=== PATIENT | female | born 1980 | race Hispanic/Latino ===

== ENCOUNTER 2018-04-01 10:57 | Observation (INO) | payer OTHER ==
[2018-03-30 11:39] LABS: Basophils % (Auto) 0.4 % (0.0-1.8); Eosinophils # (Auto) 0.1 K/mm3 (0.0-0.4); Eosinophils % (Auto) 1.5 % (0.0-4.3); Hematocrit 41.4 % (30.3-42.9); Hemoglobin 13.8 gm/dl (10.1-14.3); Lymphocytes # (Auto) 2.6 K/mm3 (1.2-5.4); Mean Corpuscular HGB Conc 33 % (30-34); Mean Corpuscular Hemoglobin 29 pg (28-32); Mean Corpuscular Volume 88 fl (79-97); Monocytes # (Auto) 0.3 K/mm3 (0.0-0.8); Monocytes % (Auto) 4.1 % (0.0-7.3); Platelet Count 279 K/mm3 (140-440)
--- NOTE | 2018-03-30 11:56 | Anesthesia Consultation ---
Anesthesia Consult and Med Hx Date of service: 03/30/18 - Airway ROM Head & Neck: Adequate Mental/Hyoid Distance: Adequate Mallampati Class: Class I Intubation Access Assessment: Good - Pulmonary Exam CTA: Yes - Cardiac Exam Cardiac Exam: RRR - Pre-Operative Health Status ASA Pre-Surgery Classification: ASA2 Proposed Anesthetic Plan: General Nerve Block: TAP BLOCK - Pulmonary Hx Smoking: Yes - Central Nervous System Hx Psychiatric Problems: Yes - Other Systems Hx Alcohol Use: Yes (Several times /week) Hx Cancer: No
--- NOTE | 2018-04-01 08:00 | History and Physical Report ---
History of Present Illness Date of examination: 04/01/18 Chief complaint: chronic pelvic pain History of present illness: 37y/o with a longstanding history of chronic pelvic pain and dyspareunia. She has undergone surgical management in the past with a laparoscopy for ovarian cysts. She reports her pain is now affecting her quality of life. She elects to proceed with surgical management. Pelvic ultrasound was unremarkable Past History Past Medical History: migraines, other (depression; polycystic ovaries) Past Surgical History: section, other (laparoscopy; BTL) Social history: - Obstetrical History : 2 Para: 2 Hx # Term Pregnancies: 2 Number of Pregnancies: 0 Spontaneous Abortions: 0 Induced : 0 Number of Living Children: 2 Medications and Allergies Allergies Allergy/AdvReac Type Severity Reaction Status Date / Time acetaminophen [From Percocet] Allergy Headache Verified 03/30/18 12:37 oxycodone HCl [From Percocet] Allergy Headache Verified 03/30/18 12:37 propoxyphene napsylate Allergy Headache Verified 03/30/18 12:37 [From Darvocet-N 100] Home Medications Medication Instructions Recorded Confirmed Last Taken Type HYDROcodone/ACETAMINOPHEN 1 tab PO Q6H PRN 03/24/18 03/24/18 Unknown History [Hydrocodone-Acetamin 5-325 mg] Ibuprofen [Ibu] 800 mg PO Q8H PRN 03/24/18 03/24/18 Unknown History traMADol [Ultram 50 MG tab] 50 mg PO Q8H PRN 03/24/18 03/24/18 Unknown History Active Meds: Active Medications Celecoxib (Celebrex) 200 mg PO PREOP NR Stop: 04/01/18 23:59 Gabapentin (Neurontin) 300 mg PO PREOP NR Stop: 04/01/18 23:59 Lactated Ringer's (Lactated Ringers) 1,000 mls @ 100 mls/hr IV DIRECT FILIBERTO Review of Systems All systems: negative Genitourinary: pelvic pain - Vital Signs Vital signs: Vital Signs Temp Pulse Resp BP 97.7 F 60 16 124/74 03/30/18 11:05 03/30/18 11:05 03/30/18 11:05 03/30/18 11:05 Temp Pulse Resp BP Pulse Ox 97.7 F 60 16 124/74 03/30/18 11:05 03/30/18 11:05 03/30/18 11:05 03/30/18 11:05 - Physical Exam Breasts: Positive: deferred Cardiovascular: Regular rate Lungs: Positive: Clear to auscultation Abdomen: Positive: normal appearance Results Result Diagrams: 03/30/18 11:15 All other labs normal. Assessment and Plan - Patient Problems (1) Chronic pelvic pain in female Status: Acute Plan to address problem: scheduled for a robotic hysterectomy and BSO (2) Dyspareunia in female Status: Acute
[~2018-04-01 10:57] MED LIST: ANCEF/STERILE WATER 2 GM/20 ML 2 GM/20 ML SYRINGE IV SCH; MARCAINE 0.5% INFILTRATI ONE; NEURONTIN PO NR; SUBLIMAZE IV ONE; VERSED IV NR
[2018-04-01] MEDS: LACTATED RINGERS 1,000 ML IV SCH ×2 (11:36→23:59)
[2018-04-01] MEDS ORDERED: VERSED ONE (12:52)
[2018-04-01] MEDS ORDERED: NAROPIN O.5% ONE (12:52)
[2018-04-01] MEDS ORDERED: SUBLIMAZE ONE ×2 (12:53→13:13)
[2018-04-01] MEDS ORDERED: XYLOCAINE MPF 2% ONE (13:13)
[2018-04-01] MEDS ORDERED: DIPRIVAN 10 MG/ML IV ONE (13:13)
[2018-04-01] MEDS ORDERED: ZEMURON IV ONE (13:13)
[2018-04-01] MEDS ORDERED: NEOSPORIN GU IR ONE ×2 (14:02→14:49)
[2018-04-01] MEDS ORDERED: DILAUDID ONE (14:25)
[2018-04-01] MEDS ORDERED: NACL 0.9% IR ONE ×2 (14:46→14:50)
[2018-04-01] MEDS ORDERED: GELFOAM POWDER 1GM MM ONE ×2 (14:51)
[2018-04-01] MEDS ORDERED: THROMBIN SPRAYKIT (BOVINE) TP ONE (14:51)
[2018-04-01] MEDS ORDERED: THROMBIN (BOVINE) TP ONE (14:51)
--- NOTE | 2018-04-01 15:36 | Operative Report ---
Operative Report Operative Report: Date of surgery: 04/01/2018 Preoperative diagnoses: Chronic pelvic pain Postoperative diagnoses: Same as above; pelvic adhesive disease Procedure: Robotic hysterectomy and bilateral salpingo-oophorectomy; lysis of adhesions Surgeon: Marie Jeffers M.D. [place] Printer: Laura Sanchez Anesthesia: Gen. endotracheal anesthesia Estimated blood loss: 200 mL Pathology: Uterus, cervix, bilateral tubes and ovaries Indication: 37-year-old 002 with a history of worsening chronic pelvic pain that has become debilitating. The patient also complained of worsening dyspareunia. She elected to undergo definitive surgical management. Procedure: The patient was taken to the operating room and given general endotracheal anesthesia without complication. She is prepped and draped in a normal sterile fashion. A bivalve speculum was placed in the patient's vagina and a single- tooth tenaculum placed on the anterior lip of the cervix. The uterus was sounded with the uterine sound. A Mdundo uterine manipulator was placed in the bivalve speculum was then removed. Attention was then turned to the patient's abdomen where a 12 millimeter supra umbilical skin incision was then made. A Veress needle was placed and peritoneal entry was verified water-filled syringe. Insufflation of the peritoneal cavity was performed with CO2 gas. The 12 mm trocar was then placed under direct visualization. An additional 8 mm trocar was placed on the patient's left and right lateral side just opposite of the supraumbilical trocar. An additional 5 mm right lateral trocar was then placed as the accessory port. The Oswald Matthews device was used to close the fascia of the 12 mm incision. The patient was then placed in steep Trendelenburg. The da Nura robot was then engaged. A fenestrated forcep was placed in arm 2 and a vessel sealer was placed in arm 1. The surgeon then transferred to the surgical console. General survey of the abdomen and pelvis revealed normal ovaries and tubes bilaterally. The uterus was densely adherent to the anterior abdominal wall. The bladder reflection was adherent on the anterior portion of the uterus up to the midportion of the corpus of the uterus. The monopolar scissors were used in order to lyse the adhesions of the uterus to the anterior abdominal wall. It was still noted that the bladder was adherent to the lower uterine segment of the uterus. Extensive lysis of adhesions had to be performed. The infundibulopelvic ligament was then isolated on the right. The vessel sealer was used to coagulate the ligament which was then transected. The tube and ovary were transected from the supply. The round ligament was then coagulated and transected also. The vesicouterine peritoneum was then entered from the patient's right side. The uterine vessels were then coagulated with the vessel sealer. The vessels were then transected . Attention was then turned to the patient's left side where the infundibulopelvic ligament and mesosalpinx were again isolated coagulated and transected. The vesical peritoneum was then entered from the left and joined in the midline. The monopolar scissors had to be used in order to release additional adhesions of the bladder to the lower uterine segment. Insufflation of the bladder was performed twice in order to ensure that there was not an incidental cystotomy performed. The bladder remained intact with both observations. Peritoneum was reflected off of the lower uterine segment. Uterine vessels were then coagulated and then transected. The blood supply to the uterus was adequately contained, a posterior colpotomy was made. The V care ring was visualized. Posterior colpotomy was created with the monopolar scissors. The incision was continued circumferentially until anterior colpotomy was made. The cervix and uterus were amputated from the vaginal cuff. The uterus was then removed along with the tubes and ovaries bilaterally through the vagina and a warm laparotomy sponge was placed and maintain the pneumoperitoneum. The vaginal cuff was then closed in a running fashion with V lock suture. Irrigation of the pelvis was performed. Gelfoam with thrombin was applied to the incision. The skin was then reapproximated with 4-0 Monocryl. The tissue was sent to pathology which included the cervix, uterus, tubes and ovaries. The patient was then successfully extubated. She was then taken to the recovery room in stable condition. All sponge laps and needle counts were correct x2.
[2018-04-01] MEDS ORDERED: DILAUDID PO PRN (15:37)
[2018-04-01] MEDS ORDERED: TYLENOL PO PRN (15:37)
[2018-04-01] MEDS ORDERED: NARCAN 0.4 MG/1 ML IV PRN (15:37)
[2018-04-01] MEDS ORDERED: ZOFRAN ODT PO PRN (15:37)
[2018-04-01] MEDS ORDERED: MILK OF MAGNESIA PO PRN (15:37)
[2018-04-01] MEDS ORDERED: MOTRIN PO PRN (15:37)
[2018-04-01] MEDS ORDERED: BLOXIVERZ ONE (15:42)
[2018-04-01] MEDS ORDERED: DECADRON ONE (15:42)
[2018-04-01] MEDS ORDERED: ROBINUL ONE (15:42)
[2018-04-01] MEDS ORDERED: ZOFRAN ONE (15:42)
[2018-04-01] MEDS ORDERED: TORADOL ONE (15:58)
[2018-04-01] MEDS ORDERED: MORPHINE PCA 30MG/30ML IV SCH (16:00)
[2018-04-01] MEDS: DILAUDID IV PRN ×2 (16:15→16:27)
[2018-04-01] MEDS: D5LR 1,000 ML IV SCH (16:31)
--- NOTE | 2018-04-01 16:38 | Post Anesthesia Evaluation ---
- Post Anesthesia Evaluation Patient Participated: Yes Airway Patent: Yes Stable Respiratory Function: Yes Nausea/Vomiting: No Temp > 96.8F: Yes Pain Manageable: Yes Adequeate Hydration: Yes Anesthesia Complications: No
--- NOTE | 2018-04-01 16:38 | Anesthesia Day of Surgery ---
Anesthesia Day of Surgery - Day of Surgery Patient Examined: Yes Patient H&P Reviewed: Yes Patient is NPO: Yes
[2018-04-01] MEDS ORDERED: ZOFRAN IV PRN (16:39)
[2018-04-01] MEDS: TORADOL IV SCH ×2 (20:44→22:12)
[2018-04-02] MEDS: D5LR 1,000 ML IV SCH ×2 (00:04→07:17)
[2018-04-02] MEDS: TORADOL IV SCH ×2 (04:26→09:12)
[2018-04-02 06:27] LABS: Hematocrit 36.5 % (30.3-42.9); Hemoglobin 11.9 gm/dl (10.1-14.3)
--- NOTE | 2018-04-02 08:15 | Progress Note ---
Assessment and Plan - Patient Problems (1) Chronic pelvic pain in female Current Visit: No Status: Acute Plan to address problem: Patient will well Discharge home once she meets discharge criteria (2) Dyspareunia in female Current Visit: No Status: Acute Subjective - Subjective Date of service: 04/02/18 Interval history: Patient states she was unable to sleep well last night. Her Elena has been removed but [facility]. She is tolerating her diet without complication. Patient reports: appetite normal, pain well controlled Objective - Vital Signs Latest vital signs: Vital Signs Temp Pulse Resp Resp BP BP Pulse Ox 04/02/18 08:07 16 04/02/18 08:05 20 04/02/18 04:42 98.6 F 65 18 98/61 99 04/02/18 04:00 18 04/02/18 02:44 98.8 F 64 18 96/63 97 04/01/18 21:51 18 04/01/18 20:00 98.3 F 63 18 114/80 98 04/01/18 17:30 98.0 F 65 16 122/75 97 04/01/18 17:27 98.0 F 67 16 122/75 94 04/01/18 17:10 56 L 12 121/73 100 04/01/18 17:00 98.6 F 54 L 13 120/71 99 04/01/18 16:57 12 04/01/18 16:45 54 L 12 110/72 99 04/01/18 16:30 54 L 11 L 114/61 99 04/01/18 16:27 13 04/01/18 16:15 59 L 13 116/65 100 04/01/18 16:10 57 L 12 117/66 98 04/01/18 16:05 57 L 13 120/72 95 04/01/18 15:58 98.9 F 65 16 161/63 95 04/01/18 13:23 54 L 12 110/66 98 04/01/18 13:16 65 12 108/67 98 04/01/18 13:14 63 12 107/61 98 04/01/18 13:09 56 L 14 115/65 98 04/01/18 13:04 55 L 10 L 109/65 98 04/01/18 12:59 70 12 114/70 99 04/01/18 11:37 16 04/01/18 11:15 97.8 F 80 16 113/75 97 Intake and Output 04/01/18 04/02/18 04/02/18 22:59 06:59 14:59 Intake Total 2040 943.75 902.083 Output Total 70 1100 Balance 1970 -156.25 902.083 Intake: IV 1800 943.75 902.083 D5lr 1,000 ml @ 125 mls/ 943.75 902.083 hr IV DIRECT FILIBERTO Rx#: [id number] Lactated Ringers 1,000 ml 1000 @ 100 mls/hr IV DIRECT FILIBERTO Rx#:[id number] Oral 240 Output: Urine 70 1100 Indwelling Catheter 1100 Other: Total, Intake Amount 240 Total, Output Amount 1100 Voiding Method Indwelling Catheter Indwelling Catheter Weight 95.25 kg - Exam Abdomen: Present: normal appearance, soft Incision: Present: normal
--- NOTE | 2018-04-02 08:17 | Discharge Summary ---
Providers - Providers Date of Admission: 04/01/18 15:37 Date of discharge: 04/02/18 Attending physician: MAYE ROLAND Primary care physician: SABINE LOVE Hospitalization Reason for admission: other (chronic pelvic pain) Procedure: other (robotic hysterectomy and bilateral salpingo-oophorectomy) Incision: normal Discharge diagnosis: other (chronic pelvic pain) Hospital course: The patient was admitted the day of surgery and underwent a robotic hysterectomy and bilateral salpingo-oophorectomy. Please see operative note for details of surgery. Her postoperative course was uneventful. Condition at discharge: Good Disposition: DC-01 TO HOME OR SELFCARE - Discharge Diagnoses (1) Chronic pelvic pain in female Status: Acute (2) Dyspareunia in female Status: Acute Plan - Discharge Medications Prescriptions: Docusate Sodium [Colace] 100 mg PO BID PRN #60 capsule PRN Reason: Constipation Hydromorphone HCl [Dilaudid] 4 mg PO Q6H PRN #45 tablet PRN Reason: Pain , Severe (7-10) Ibuprofen [Motrin] 800 mg PO Q8HR PRN #60 tablet PRN Reason: Pain, Mild (1-3) - Provider Discharge Summary Activity: no sex for 6 weeks, no heavy lifting 4 weeks, no strenuous exercise Diet: routine Instructions: routine Additional instructions: [] Smoking cessation referral if applicable(refer to patient education folder for contact #) [] Refer to [facility]'s [facility] Booklet Call your doctor immediately for: * Fever > 100.5 * Heavy vaginal bleeding ( >1 pad per hour) * Severe persistent headache * Shortness of breath * Reddened, hot, painful area to leg or breast * Drainage or odor from incision. * Keep incision clean and dry at all times and follow doctor's instructions regarding bathing/showering Scheduled follow-up in 4 weeks - Follow up plan
[2018-04-02] MEDS ORDERED: AFLURIA QUAD 2018-2019 SYRINGE IM ONE (12:00)
[2018-04-02 12:18] VITALS: BP 115/61
== END 2018-04-02 13:28 | disposition home or self-care (01) ==
LOC: OR 10:57 → OB 15:37
PROVIDERS: ADMIT Obstetrics & Gynecology; ATTEND Obstetrics & Gynecology
DX: R10.2 Pelvic and perineal pain (principal); N94.10 Unspecified dyspareunia; N73.6 Female pelvic peritoneal adhesions (postinfective); G89.29 Other chronic pain; G43.909 Migraine, unspecified, not intractable, without status migrainosus; F32.9 Major depressive disorder, single episode, unspecified; E28.2 Polycystic ovarian syndrome; Z88.8 Allergy status to other drugs, medicaments and biological substances; Z79.899 Other long term (current) drug therapy
CPT/HCPCS: 36415; 58571; 64450; 84703; 85014; 85018; 85025; 86850; 86900; 86901; 88307; 96374; 96375; 96376; A4217; A4649; G0378; J1100; J1170; J1885; J2250; J2270; J2405; J2704; J2710; J2795; J3010; J7120; J7121; S2900; 90686

== ENCOUNTER 2018-10-05 08:39 | Emergency (ER) | payer OTHER ==
[2018-10-05 08:51] VITALS: BP 144/86
[2018-10-05] MEDS ORDERED: FLEXERIL PO ONE (10:36)
[2018-10-05] MEDS ORDERED: IBUPROFEN PO ONE (10:36)
--- NOTE | 2018-10-05 11:02 | Emergency Department Report ---
HPI - General Chief Complaint: Extremity Problem,Nontraumatic Time Seen by Provider: 10/05/18 09:51 - HPI HPI: Patient is a 30-year-old female with no prior medical history presents ED complaining of left-sided breast pain and intermittent A. fib the cervix. Patient states that she saw her primary care physician who then referred her to her breast specialist for examination in about a week patient says in the past 2 days pain has gotten slightly worse. Patient states the pain is worse with pressing on the breasts as well as sometimes lifts his arm she physically in the breast. She denies shortness of breath, chest pain, chest injury or fall or trauma to the chest. ED Past Medical Hx - Past Medical History Previous Medical History?: Yes Additional medical history: Polycystic ovarian syndrome - Surgical History Past Surgical History?: Yes Additional Surgical History: csection x 2, hysterectomy - Social History Smoking Status: Current Every Day Smoker Substance Use Type: Alcohol - Medications Home Medications: Home Medications Medication Instructions Recorded Confirmed Last Taken Type HYDROcodone/ACETAMINOPHEN 1 tab PO Q6H PRN 03/24/18 03/24/18 Unknown History [Hydrocodone-Acetamin 5-325 mg] traMADol [Ultram 50 MG tab] 50 mg PO Q8H PRN 03/24/18 03/24/18 Unknown History Docusate Sodium [Colace] 100 mg PO BID PRN #60 capsule 04/02/18 Unknown Rx Hydromorphone HCl [Dilaudid] 4 mg PO Q6H PRN #45 tablet 04/02/18 Unknown Rx Ibuprofen [Motrin] 800 mg PO Q8HR PRN #60 tablet 04/02/18 Unknown Rx Cyclobenzaprine [Flexeril 10 MG 10 mg PO Q8H #20 tablet 10/05/18 Unknown Rx TAB] Ibuprofen [Ibu] 800 mg PO Q8H PRN #30 tablet 10/05/18 Unknown Rx ED Review of Systems ROS: Stated complaint: TINGLES LFT SIDE/LFT BREAST PAIN Other details as noted in HPI Comment: All other systems reviewed and negative Constitutional: denies: chills, fever Eyes: denies: eye pain, eye discharge, vision change ENT: denies: ear pain, throat pain Respiratory: denies: cough, shortness of breath, wheezing Cardiovascular: denies: chest pain, palpitations Endocrine: no symptoms reported Gastrointestinal: denies: abdominal pain, nausea, diarrhea Genitourinary: denies: urgency, dysuria, discharge Musculoskeletal: denies: back pain, joint swelling, arthralgia Skin: denies: rash, lesions Neurological: denies: headache, weakness, paresthesias Psychiatric: denies: anxiety, depression Hematological/Lymphatic: denies: easy bleeding, easy bruising Physical Exam - Physical Exam Vital Signs: Vital Signs 10/05/18 10/05/18 08:48 10:47 Temperature 98.0 F Pulse Rate 88 Respiratory 18 20 Rate Blood Pressure 144/86 O2 Sat by Pulse 99 Oximetry ED Course Vital Signs 10/05/18 10/05/18 08:48 10:47 Temperature 98.0 F Pulse Rate 88 Respiratory 18 20 Rate Blood Pressure 144/86 O2 Sat by Pulse 99 Oximetry Critical care attestation.: If time is entered above; I have spent that time in minutes in the direct care of this critically ill patient, excluding procedure time. ED Disposition Clinical Impression: Breast pain in female Disposition: DC-01 TO HOME OR SELFCARE Is pt being admited?: No Does the pt Need Aspirin: No Condition: Stable Instructions: Chest Pain (ED), Costochondritis (ED) Additional Instructions: Make sure to follow up with the primary care physician as discussed. Take all your medications as you've been prescribed. If you have any worsening symptoms or develop new symptoms please return to ED immediately. Prescriptions: Cyclobenzaprine [Flexeril 10 MG TAB] 10 mg PO Q8H #20 tablet Ibuprofen [Ibu] 800 mg PO Q8H PRN #30 tablet PRN Reason: discomfort Referrals: [facility] [Other] - 3-5 Days Forms: Accompanied Note, Work/School Release Form(ED) Time of Disposition: 11:08
== END 2018-10-05 11:20 | disposition home or self-care (01) ==
LOC: ED 08:39
DX: N64.4 Mastodynia (principal); F17.200 Nicotine dependence, unspecified, uncomplicated
CPT/HCPCS: 99282